=== PATIENT | female | born 1990 | race Two or more races ===

== ENCOUNTER 2019-08-09 16:57 | Emergency (ER) | payer SELFPAY ==
[~2019-08-09] VITALS: Ht 162.6 cm; Wt 74.8 kg
[2019-08-09 17:07] VITALS: BP 117/74
--- NOTE | 2019-08-09 17:25 | NUR ---
PATIENT SEEN AND EVALUATED BY DEGRASSE MECHANICAL FITTER. PATIENT A/OX4, BREATHING EVEN AND UNLABORED, NO SOB NOTED. NEEDS ATTENDED.
--- NOTE | 2019-08-09 17:35 | NUR ---
Patient discharged to home in stable condition. Written and verbal after care instructions given. Patient verbalizes understanding of instruction.
== END 2019-08-09 17:39 | disposition home or self-care (01) ==
LOC: ER 17:06
DX: R05 Cough (principal); R09.81 Nasal congestion; R50.9 Fever, unspecified